=== PATIENT | female | born 1995 | race Caucasian/White ===

== ENCOUNTER → 2022-06-06 | Outpatient (REF) | payer BC | LOC: M SFHCWAGY 10:14 | PROVIDERS: ATTEND Nurse Practitioner Family | DX: Z12.4 Encounter for screening for malignant neoplasm of cervix (principal) | CPT/HCPCS: 87624; G0123 ==

== ENCOUNTER → 2022-07-24 | Outpatient (REF) | payer OTHER ==
[2022-07-24 18:15] LABS: RBC, URINE NONE SEEN /hpf (0-3)
[2022-07-24 18:16] LABS: BACTERIA, URINE LARGE AMOUNT; HYALINE CAST, URINE NONE SEEN /lpf (0-1); SQUAMOUS EPITHELIAL CELL URINE NONE SEEN /hpf (SMALL AMT)
== END ==
LOC: M LAB REF 16:16
PROVIDERS: ATTEND Physician Assistant Medical
DX: N39.0 Urinary tract infection, site not specified (principal)